=== PATIENT | female | born 1940 | race Caucasian/White ===

== ENCOUNTER → 2016-12-10 | Outpatient (CLI) | payer OTHER | LOC: FIMAGING 11:21 | DX: Z12.31 Encounter for screening mammogram for malignant neoplasm of breast (principal) | CPT/HCPCS: G0202 ==

== ENCOUNTER → 2018-01-11 | Outpatient (CLI) | payer OTHER | LOC: FIMAGING 11:04 | PROVIDERS: ATTEND Internal Medicine | DX: Z12.31 Encounter for screening mammogram for malignant neoplasm of breast (principal) ==

== ENCOUNTER → 2018-03-17 | Outpatient (CLI) | payer OTHER ==
[~2018-03-17] MED LIST: GADOBUTROL 10 ML VIAL IVP ONE
== END ==
LOC: FIMAGING 15:09
PROVIDERS: ATTEND Obstetrics & Gynecology
DX: R93.8 Abnormal findings on diagnostic imaging of other specified body structures (principal)
CPT/HCPCS: 72197; A9585

== ENCOUNTER 2018-05-03 06:34 | Day surgery (SDC) | payer OTHER ==
--- NOTE | 2018-05-02 23:33 | GHP ---
[f rep st] PREOP HISTORY AND PHYSICAL DATE OF ADMISSION: 05/03/2018 Date of surgery planned for 05/03/2018, on the gynecology service. HISTORY: Upon presentation, the patient is a 77-year-old para 2 white female who was noted by Dr. Bruno gonzalez to have a cervical mass on routine ultrasound. The patient is not symptomatic for anything va ginally. She denies any pain or abnormal vaginal discharge. The patient has not had any bleeding. She has no trouble with her bladder function, and bowel movements are normal. This was an incidental finding noted last August on the pelvic ultrasound that is routinely obtained by the patient's PCP . The ultrasound is performed to screen for ovarian risk and noted a 2.4 cm heterogeneous mass withi n the cervix. There was internal vascularity. Possibly representing an endocervical polyp. The end ometrial stripe was 7 mm, and there was a moderate amount of endometrial fluid within the cavity. patient has had routine pelvic ultrasounds, and there has been commonly mention of endometrial flui d from 6-12 mm, but there is no prior mention of a cervical mass. The ultrasound was repeated on Jan at which time the endometrium was 3.6 mm, and there was a cervical mass at 2.2 x 2.2 cm that was identified. The endometrium was filled with fluid, very thin. The uterus itself is retroverted 5.6 x 2.5 x 4 cm. There are 2 small fibroids less than a centimeter in size. The patient had an exa mination performed in January at which time there was no obvious cervical mass. The cervix itself is f lat, and there is a stenotic cervical os. The vaginal tissue is atrophic. A Pap smear was performed , which irritated the cervix, and there was scant bleeding. All of these results were normal. An MR I was performed to further differentiate the tissue. There was a mass noted central within the cervi x with slight extension anteriorly measuring in total 3 x 3 x 5 cm. There is no extension into the s urrounding soft tissue. No pelvic lymphadenopathy or ascites. The uterus has a normal contour. Ova perry are bilaterally normal, and there are no masses. The patient's case was reviewed with the diving coach o ncologist in [place], who agreed with the plan to attempt cervical dilation and then hysteroscopy to a ssess for a polyp. With the history of endometrial fluid, the other possibility was the stenotic cer vix was just allowing the fluid to accumulate into a masslike structure. With surgery, the plan will be to dilate and evacuate anything found and do a hysteroscopy for inspection. The risks of these p rocedures were discussed with the patient, and the consent form is signed. PAST MEDICAL HISTORY: Hypothyroidism, hypercholesterolemia. Atherosclerotic disease of the heart. Osteoporosis. For the finding of osteoporosis, the patient was placed on low-dose hormone replacemen t. This was not until more recently. The patient had menopause at age 53, and no hormone replacemen t early on. PAST SURGICAL HISTORY: Breast implants in 1963. PAST OBSTETRIC HISTORY: Vaginal x2 at term with 2 daughters. ALLERGIES: The patient has penicillin and an erythromycin allergy causing a rash. CURRENT MEDICATIONS: Ashley 30 mg plus 15 mg daily. Lovastatin 10 mg daily. Zetia 10 mg daily. Bu metanide 0.5 mg daily. Prempro 0.3/1.5 daily. FAMILY HISTORY: The patient possibly recalls heart disease and high blood pressure in her family. Kamron still mother and her sister had osteoporosis. Arthritis was also in her mother, and her father had colon cancer and possibly glaucoma. SOCIAL HISTORY: The patient is , lives with her . She has been quite involved with wv ed with his health problems recently. The patient was given the option of going down to [facility] in [place] for thorough evaluation but felt that she really would have a hard time going down to [facility] [place] for management with her elderly . REVIEW OF SYSTEMS: As noted above. 10-point review and pertinent positives and negatives noted. PAST GYNECOLOGIC HISTORY: No history of abnormal Pap smears. Patient without any history of sexuall y transmitted infections. Patient denies any current sexual activity. PHYSICAL EXAM: GENERAL: Patient is an elderly white female in no physical distress. VITAL SIGNS: The patient is clinically afebrile. Blood pressure 92/62. Weight 99.2 pounds. PSYCH: The patient is not anxious but resolved take care of this. LUNGS: Clear to auscultation bilaterally. CARDIOVAS CULAR: Regular rate and rhythm. PELVIC: Not repeated after the initial evaluation in January. At th at time, there are atrophic external genitalia and vaginal tissue. Flat stenotic cervix. No masses palpable. The uterus is mobile, small, and retroverted. EXTREMITIES: Nontender. No edema. ASSESSMENT: Cervical mass, possibly polyp versus accumulated fluid behind stenotic cervix versus pat hologic tissue. PLAN: Patient will be given Cytotec and will take 400 mcg on the night prior to procedure. Followin g this, we will slowly attempt to dilate the cervix and release any fluid if found. Will proceed wit h hysteroscopy and possible polypectomy or biopsies. /[id number]/MODL
[2018-05-03] MEDS ORDERED: CLINDAMYCIN 900 MG/DEXTROSE 50 ML IV ONE (07:15)
[2018-05-03] MEDS ORDERED: LR 1,000 ML IV ONE (07:15)
[2018-05-03] MEDS ORDERED: LIDOCAINE 1% 2 ML INJ ID PRN (07:15)
[2018-05-03] MEDS ORDERED: SILVER NITRATE APPLICATOR 1 APPL TP ONE (07:51)
[2018-05-03] MEDS ORDERED: MIDAZOLAM 2 MG/2 ML VIAL IVP ONE (07:58)
--- NOTE | 2018-05-03 07:58 | PDANEPAE ---
ANE History of Present Illness uterine polyps/mas ANE Past Medical History - Cardiovascular History Hx Hypertension: Yes Hx Arrhythmias: No Hx Chest Pain: No Hx Coronary Artery / Peripheral Vascular Disease: No Hx CHF / Valvular Disease: No Hx Palpitations: No - Pulmonary History Hx COPD: No Hx Asthma/Reactive Airway Disease: No Hx Recent Upper Respiratory Infection: No Hx Oxygen in Use at Home: No Hx Sleep Apnea: No Sleep Apnea Screening Result - Last Documented: Negative - Neurologic History Hx Cerebrovascular Accident: No Hx Seizures: No Hx Dementia: No - Endocrine History Hx Diabetes: No - Renal History Hx Renal Disorders: No - Liver History Hx Hepatic Disorders: No - Neurological & Psychiatric Hx Hx Neurological and Psychiatric Disorders: No - Cancer History Hx Cancer: No - Congenital Disorder History Hx Congenital Disorders: No - GI History Hx Gastrointestinal Disorders: No - Other Health History Other Health History: dental implants - Chronic Pain History Chronic Pain: No - Surgical History Prior Surgeries: lypoma removed 2013 ANE Review of Systems Review of systems is: negative Review of Systems: - Exercise capacity Exercise capacity: >=4 METS METS (RN): 4 METS ANE Patient History - Allergies Allergies/Adverse Reactions: erythromycin base [Erythromycin Base] Allergy (Verified 04/13/18 15:26) Rash penicillin V potassium [From Pen-Vee K] Allergy (Verified 04/13/18 15:26) Rash - Home Medications Home Medications: Aspirin 03/18/10 [Last Taken 04/26/18] PREMPRO 0.3 MG-1.5 MG TABLET 03/18/10 [Last Taken 05/03/18 06:00] [place] Thyroid 04/13/18 [Last Taken 05/03/18 06:00] Bumetanide 04/13/18 [Last Taken 05/02/18 08:00] Calcium 600 + Vit D 400 Softgl 04/13/18 [Last Taken 04/26/18] Cholecalciferol (Vitamin D3) 04/13/18 [Last Taken 04/26/18] Fish Oil 1,200 mg Softgel 04/13/18 [Last Taken 04/26/18] Garlic 04/13/18 [Last Taken 04/26/18] Lovastatin 04/13/18 [Last Taken 05/02/18 18:00] Magnesium 04/13/18 [Last Taken 04/26/18] Zetia 04/13/18 [Last Taken 05/02/18 18:00] - NPO status NPO Status: no food or drink >8 hours NPO Since - Liquids (Date): 05/02/18 NPO Since - Liquids (Time): 21:00 NPO Since - Solids (Date): 05/02/18 NPO Since - Solids (Time): 21:00 - Anes Hx Anes Hx: no prior problems - Smoking Hx Smoking Status: Former smoker - Alcohol Use Alcohol Use: Occasionally (7/wk) - Family Anes Hx Family Anes Hx: none Family Hx Anesthesia Complications: none ANE Labs/Vital Signs - Vital Signs Blood Pressure: 141/79 Heart Rate: 59 Respiratory Rate: 16 O2 Sat (%): 98 Height: 170.18 cm Weight: 45.359 kg ANE Physical Exam - Airway Neck exam: FROM Mallampati Score: Class 2 Mouth exam: normal dental/mouth exam - Pulmonary Pulmonary: no respiratory distress - Cardiovascular Cardiovascular: regular rate and rhythym - ASA Status ASA Status: II ANE Anesthesia Plan Anesthesia Plan: GA w LMA
[2018-05-03] MEDS ORDERED: MIDAZOLAM 2 MG/2 ML VIAL ONE (08:01)
[2018-05-03] MEDS ORDERED: LIDOCAINE 0.5% 50 ML SDV ONE (08:10)
[2018-05-03] MEDS ORDERED: ONDANSETRON 4 MG/2 ML VIAL ONE (08:10)
[2018-05-03] MEDS ORDERED: fentaNYL 100 MCG/2 ML INJ ONE (08:11)
[2018-05-03] MEDS ORDERED: PROPOFOL 200 MG/20 ML VIAL ONE (08:11)
[2018-05-03] MEDS ORDERED: KETOROLAC 15 MG/1 ML SDV IVP ONE (09:32)
[2018-05-03] MEDS ORDERED: ONDANSETRON 4 MG/2 ML VIAL IVP PRN (09:32)
[2018-05-03] MEDS ORDERED: HYDROCODONE/APAP 5/325 TAB PO PRN (09:32)
[2018-05-03] MEDS ORDERED: fentaNYL 100 MCG/2 ML INJ IVP PRN (09:32)
[2018-05-03] MEDS ORDERED: NALOXONE HCL 0.4 MG/ML INJ IVP PRN (09:32)
--- NOTE | 2018-05-03 09:33 | POSTANESTH ---
Post Anesthetic Evaluation Cardiovascular Status: Normal, Stable Respiratory Status: Normal, Stable Level of Consciousness/Mental Status: Can Participate in Eval Pain Control: Adequate, Prn Tx Ordered Nausea/Vomiting Control: Adequate, Prn Tx Ordered Complications Possibly Related to Anesthesia: None Noted
--- NOTE | 2018-05-03 09:37 | POSTOPPROG ---
Post Op Note Date of Operation: 05/03/18 Surgeon: Ela Epps Anesthesiologist: John Ding MD Anesthesia: GET(General Endotracheal) Pre-op Diagnosis: cervical mass Post-op Diagnosis: same, likely cervical polyp Indication: 3x5 cm new mass noted in cx - no bleeding, no pain Procedure: hysteroscopy and removal of mass/polypectomy Findings: thin endometrium, no mass noted until at distal cx and extended cx to left Inf/Abcess present in the surg proc area at time of surgery?: No Depth: Organ Space EBL: Minimal Total fluids administered: deficit 230 on hysteroscopy, minimal EBL Specimen(s): endocervical mass c/w polyp
[2018-05-03] MEDS ORDERED: KETOROLAC 15 MG/1 ML SDV ONE (09:44)
[2018-05-03 11:48] VITALS: BP 126/66
--- NOTE | 2018-05-03 12:34 | POSTANESTH ---
Post Anesthetic Evaluation Cardiovascular Status: Normal, Stable Respiratory Status: Normal, Stable Level of Consciousness/Mental Status: Can Participate in Eval Pain Control: Adequate, Prn Tx Ordered Nausea/Vomiting Control: Adequate, Prn Tx Ordered Notes: pt c/o 3 loose teeth (11,12,21) s/p atraumatic LMA insertion and deep removal. Upon examination, pt does have mobile teeth in the setting of severe peridontal disease and receeding gumline. While she claims they were not previously noticably loose, I would presume they had severe underlying stability issues given the unremarkable, atraumatic insertion and removal of the LMA. I showed her how soft an LMA is and have counseled her to return within the week to her dentist, gave her my business card with personal cell number and she agreed to f /u with me with the dentist's recommendation and/or speak to the dentist.
--- NOTE | 2018-06-13 19:04 | GOP ---
[f rep st] OPERATIVE REPORT DATE OF OPERATION: 05/03/2018 SURGEON: Ela Epps MD ANESTHESIA: General endotracheal anesthesia. ANESTHESIOLOGIST: John Ding MD PREOPERATIVE DIAGNOSIS: Cervical mass. POSTOPERATIVE DIAGNOSIS: Cervical mass, likely a cervical polyp. PROCEDURE PERFORMED: Hysteroscopy and removal of mass, polyp. FINDINGS: SPECIMENS: Pathology includes the endocervical mass that was consistent with polypoid tissue. ESTIMATED BLOOD LOSS: Minimal blood loss. INDICATIONS: Patient is a 77-year-old para 2, white female, noted by her primary care to have a cerv ical mass on routine pelvic ultrasound surveillance. Patient not symptomatic. This was noted in Aug and was noted to be 2.4 cm of a heterogeneous mass within the cervix with internal vascula rity. The endometrial stripe was 7 mm with a moderate amount of endometrial fluid. The patient rout inely has pelvic ultrasounds and has had endometrial fluid noted from 6-12 mm, but no previously note d cervical mass. The ultrasound was rechecked in January at which time the endometrium was 3.6 mm and there was a cervical mass at 2.2 cm. On physical exam, there was no evidence of an obvious cervical mass. Cervix was flat with a stenotic cervical os. An MRI was performed to further differentiate th e tissue and this noted a mass centrally within the cervix with slight extension anteriorly measuring a total of 3 x 3 x 5 cm. No extension into the surrounding soft tissue. Options were discussed wit h the patient and the patient was advised she could follow up with a COMPUTER TECHNICAL SUPPORT SPECIALIST oncologist in [place]. This is extremely difficult for the patient with transportation issues and her frail elderly . I d iscussed with the COMPUTER TECHNICAL SUPPORT SPECIALIST oncologists proceeding with a hysteroscopy to assess if there was any sign of p olyp and to open the cervix and let the fluid drain. The patient wanted to pursue this approach in l ieu of going to [place]. Risks and benefits of the procedure were discussed with the patient and the consent form signed. DESCRIPTION OF PROCEDURE: The patient was taken to the operating room where following satisfactory g eneral endotracheal anesthesia, the patient was placed in dorsal lithotomy position. The patient uri nated prior to coming to the operating room. She had SCDs on her lower extremities for DVT prophylax is and received preoperative antibiotics. The patient's perineum and vagina were prepped and the pat ient draped in the usual sterile manner for hysteroscopy. A sterile speculum was introduced into the vagina. Tenaculum placed on the anterior lip of the cervix and gentle traction was applied. The ce rvical os was stenotic, however, small dilators could be introduced and then slowly dilated up to #6. 5 Hegar dilator. The Truclear hysteroscope was introduced and the endometrial cavity could be visual ized well. There was good distention of the cavity and the interior showed a very atrophic appearing endometrial lining. Both tubal ostia and cornua appeared normal. There were no signs of any polypo id tissue up inside the uterus. Slowly, the hysteroscope was extracted out through the cervix. Once inside the internal os, then there was some difficulty maintaining distention, but on further expuls ion of the hysteroscope, there became evidence of a wider cavity with a mass noted, which had an brandy chment stalk. Morcellation was performed of the soft mass. There was fair vascularity to the mass. The morcellation removed a fair amount of the mass and it was pushing quite a cavity into the left a spect of the cervix. There was good complete removal of this mass and minimal bleeding from the vasc ular stalk area. Following this, it was not felt to be any further sampling necessary. Hysteroscope was removed totally, and there was only minimal bleeding. Tenaculum removed from the anterior lip o f the cervix and there was good hemostasis. The patient tolerated the procedure well, was cleaned of f and taken out of position. She was then awoken and then taken to the recovery room in stable condi tion. No infection at the time of surgery. FLUIDS: Total fluids out included a deficit of 230 cc on hysteroscopy and minimal blood loss. COMPLICATIONS: There were no complications. /[id number]/MODL
== END 2018-05-03 11:56 | disposition home or self-care (01) ==
LOC: FSGY 06:34
PROVIDERS: ATTEND Obstetrics & Gynecology
PROC: 0UB98ZX Excision of Uterus, Via Natural or Artificial Opening Endoscopic, Diagnostic (ICD-10-PCS; principal; 2018-05-03 08:15)
DX: N84.0 Polyp of corpus uteri (principal)
CPT/HCPCS: 58558; C1782; J1885; J2250; J2405; J2704; J3010

== ENCOUNTER → 2019-01-23 | Outpatient (CLI) | payer OTHER | LOC: FIMAGING 11:32 | PROVIDERS: ATTEND Internal Medicine | DX: Z12.31 Encounter for screening mammogram for malignant neoplasm of breast (principal) ==